=== PATIENT | female | born 1995 | race Caucasian/White ===

== ENCOUNTER 2021-05-13 12:04 | Emergency (ER) | payer OTHER, SELFPAY ==
--- NOTE | 2021-05-13 12:13 | ED.URI ---
HPI - URI/Sore Throat General Chief Complaint: Upper Respiratory Infection Stated Complaint: Sore Throat Time Seen by Provider: 05/13/21 12:34 Source: patient and RN notes reviewed Mode of arrival: ambulatory Limitations: no limitations History of Present Illness HPI Narrative: 25-year-old female presents concern for sore, white spots on her tonsils, chills, fever. Reports she is on day 3 of doxycycline for urinary tract infection. Reports she may have other infections that her traffic court magistrate is treating her for, has sent off cultures. She denies cough, shortness of breath, loss of sense of taste or smell. She has been vaccinated for Covid. She reports history of strep and history of mono. She reports she has been taking Tylenol and ibuprofen. MD elicited complaint: sore throat Related Data Home Medications Medication Instructions Recorded Confirmed dextroamphetamine-amphetamine 30 mg PO DAILY 08/17/19 05/13/21 [Adderall] alprazolam 0.25 mg PO DAILY PRN 05/13/21 05/13/21 desogestrel-ethinyl estradiol 1 tablet PO DAILY 05/13/21 05/13/21 [Enskyce] doxycycline hyclate 100 mg PO BID 05/13/21 05/13/21 Allergies Allergy/AdvReac Type Severity Reaction Status Date / Time amoxicillin Allergy Unknown Urticaria Verified 05/13/21 12:24 azithromycin Allergy Unknown Urticaria Verified 05/13/21 12:24 lisinopril Allergy Unknown Unknown Verified 05/13/21 12:24 Review of Systems Review of Systems: CONSTITUTIONAL: Denies malaise, chills, fever. EYES: Denies visual changes, redness, or discharge. ENT: Reports rhinorrhea, congestion, sinus pain, otalgia. Reports sore throat. CARDIOVASCULAR: Denies chest pain, palpitations, or edema. RESPIRATORY: Denies cough or dyspnea. GASTROINTESTINAL: Denies abdominal pain, nausea, vomiting, diarrhea SKIN: Denies rash or itching. MUSCULOSKELETAL: Reports myalgia. NEUROLOGIC: Reports headache. All systems reviewed & are unremarkable except as noted in HPI and below PMFSH Past Medical History Medical History (Updated 05/13/21 @ 12:41 by Babs Aguiar NP) Chronic joint pain Chronic low back pain Migraine Family History Family History Mother Asthma Sibling Jimena-Danlos disease Other Depression Diabetes mellitus Family history of arthritis Family history of mental disorder Social History Social History Smoking status: Never smoker Alcohol intake: current Gender identity (if verbalized by the patient): Female Comments At time of signature, agree with nursing past medical, surgical, social and family history. There is no relevant family history pertinent to the presenting complaint Exam Narrative: GENERAL: Well-appearing, well-nourished, and in no acute distress. HEAD: Normocephalic EYES: PERRLA, conjunctivae clear ENT: Nares clear. Mucous membranes moist. TM pearly de la cruz with sharp light reflex bilaterally; no tragal tenderness. Oropharynx erythematous without lesions. Tonsils enlarged and without exudate, no drooling, no hoarseness, no trismus, uvula midline. NECK: Supple. No lymphadenopathy CHEST: Clear to auscultation, breath sounds equal. No wheezing, rhonchi, rales, or stridor. No respiratory distress, speaks in full sentences. HEART: Regular rate and rhythm. No murmur heard. SKIN: Warm, dry, no rash. NEURO: Alert and oriented x3. PSYCH: Normal mood and affect Course Course Emergency Course: Patient is aware of diagnosis, understands and agrees to treatment plan. Anticipatory guidance given. Patient agrees to follow-up as directed and is aware of reasons to seek care at the emergency department. Portions of this record may have been created with voice recognition software Vital Signs Vital signs: Reviewed. MDM - URI/Sore Throat MDM Narrative Medical decision making narrative: Differential diagnosis considered: Aponte virus, strep pharyngitis, allergic r
[2021-05-13 12:15] VITALS: BP 145/103; PULSE 86; RESP 16; TEMP 36.9; O2SAT 99
[2021-05-14 19:29] LABS: SARS-CoV-2 RNA PCR Negative
== END 2021-05-13 12:52 | disposition home or self-care (01) ==
PROVIDERS: Emergency Provider Nurse Practitioner; PCP Nurse Practitioner Family
DX: J02.9 Acute pharyngitis, unspecified (principal); Z20.822 Contact with and (suspected) exposure to COVID-19; F41.9 Anxiety disorder, unspecified; F90.9 Attention-deficit hyperactivity disorder, unspecified type; F43.10 Post-traumatic stress disorder, unspecified
CPT/HCPCS: 87081; 87880; 99213; C9803; G0463; U0003; U0005

== ENCOUNTER 2021-06-28 12:35 | Outpatient (CLI) | payer OTHER, SELFPAY ==
--- NOTE | 2021-06-28 12:45 | ECHO_ITS ---
Patient Info Name: Cora Whitney Age: 25 years : 1995 Gender: Female Ht: 65 in Wt: 145 lbs BSA: 1.75 m2 HR: 64 bpm BP: 133 / 88 mmHg Technical Quality: Good Exam Date: 06/28/2021 12:54 PM Exam Location: [facility] Patient Status: Outpatient Admit Date: 06/28/2021 Staff Ordering Physician: Latoya Whitman NP Nutrition Intern: Ese Coburn RDCS Attending Provider: Latoya Whitman NP Referring Physician: J Carlos SUH; Exam Type: CA echo doppler color flow Study Info Indications I10 - Essential (primary) hypertension Complete two-dimensional, color flow and Doppler transthoracic echocardiogram is performed. Summary 1. Complete two-dimensional, color flow and Doppler transthoracic echocardiogram is performed. 2. Left ventricular chamber dimension is normal. 3. Left ventricular systolic function is normal, estimated at 60-65%. 4. The left ventricular diastolic function is normal. 5. E/e' 6 is not elevated. 6. No pulmonary hypertension, estimated pulmonary arterial systolic pressure is 26 mmHg. Left Ventricle E/e' 6 is not elevated. Left ventricular chamber dimension is normal. Left ventricular systolic function is normal, estimated at 60-65%. The left ventricular diastolic function is normal. Right Ventricle Right ventricular systolic function is normal and with normal TAPSE 2.3 cm. Right ventricular chamber dimension is normal. Left Atria Left atrial chamber dimension is normal. Right Atria Right atrial chamber dimension is normal. Aortic Valve The aortic valve is trileaflet. There is no aortic valve stenosis. There is no aortic valve regurgitation. Pulmonic Valve There is no pulmonic regurgitation. Mitral Valve There is no mitral valve stenosis. There is no mitral valve regurgitation. Tricuspid Valve There is no tricuspid valve regurgitation. No pulmonary hypertension, estimated pulmonary arterial systolic pressure is 26 mmHg. Pericardium/Pleural There is no pericardial effusion. Inferior Vena Cava Normal inferior vena cava with >50% collapse upon inspiration consistent with normal right atrial pressure, 5 mmHg. Aorta The aortic root size at the sinus of Valsalva is normal. Left Ventricular Outflow Tract Name Value Normal LVOT 2D LVOT Diameter 2.0 cm LVOT Doppler LVOT Peak Gradient 5 mmHg LVOT Mean Gradient 3 mmHg LVOT VTI 22 cm LVOT VTI/AV VTI Ratio 1.0 LVOT Stroke Volume 69 ml LVOT CO 4.7 l/min LVOT CI 2.7 l/min/m2 Pulmonic Valve Name Value Normal RVOT Doppler RVOT Peak Gradient 3 mmHg PV Doppler
== END 2021-06-28 12:36 | disposition home or self-care (01) ==
PROVIDERS: PCP Nurse Practitioner Family; Visit Provider Nurse Practitioner Family
DX: I10 Essential (primary) hypertension (principal); Z82.79 Family history of other congenital malformations, deformations and chromosomal abnormalities
CPT/HCPCS: 93306

== ENCOUNTER 2021-07-04 12:49 | Outpatient (CLI) | payer OTHER, SELFPAY ==
--- NOTE | 2021-07-04 13:15 | ECG_ITS ---
Measurements Intervals [place] Rate: 71 P: 56 ME: 127 QRS: 53 QRSD: 79 T: 16 QT: 373 QTc: 408 Interpretive Statements SINUS RHYTHM NONSPECIFIC T-WAVE ABNORMALITY- ANTERIOR LEADS BASELINE ARTIFACT- I, II, III, AVR, AVL, AVF, V1-V6 BORDERLINE ECG Electronically Signed On 07-04-2021 13:29:04 CDT by Narinder Joy D.O.
== END 2021-07-04 12:50 | disposition home or self-care (01) ==
LOC: ANHSURGERY 12:54
PROVIDERS: PCP Nurse Practitioner Family; Visit Provider Otolaryngology
DX: Z01.818 Encounter for other preprocedural examination (principal); I10 Essential (primary) hypertension; R94.31 Abnormal electrocardiogram [ECG] [EKG]
CPT/HCPCS: 93005

== ENCOUNTER 2021-07-08 00:31 | Day surgery (SDC) | payer OTHER, SELFPAY ==
[2021-07-01 16:04] VITALS: BMI 24.1
--- NOTE | 2021-07-06 10:35 | PM.IMHP ---
H&P: HPI History of Present Illness Date/Time: 07/06/21 10:35 Chief Complaint: Recurrent tonsillitis/ chronic tonsillitis Narrative: patient presents with a significant history of recurrent tonsillitis. presents for planed surgical procedure. Reports no changes in symptoms no changes in medical history. Review of Systems Constitutional: Constitutional: Denies fatigue, Denies fever(s) and Denies lethargy Eyes: Eyes: Denies blurry vision and Denies change in vision ENT: Reports as per HPI Cardiovascular: Cardiovascular: Denies chest pain Respiratory: Respiratory: Denies cough Endocrine: Endocrine: Denies fatigue Hematologic/Lymphatic: Hematologic/Lymphatic: Denies easy bleeding, Denies easy bruising and Denies lymphadenopathy Allergic/Immunologic: Allergic/Immunologic: Denies seasonal rhinorrhea [facility] Past Medical History Medical History (Updated 06/09/21 @ 08:39 by Latoya Whitman NP) ADHD (attention deficit hyperactivity disorder) Chronic joint pain Chronic low back pain Essential hypertension Migraine Family History Family History Mother Asthma Sibling Jimena-Danlos disease Other Depression Diabetes mellitus Family history of arthritis Family history of mental disorder Social History Social History Smoking status: Never smoker Alcohol intake: current Drinks per week: 3 Substance use: current Substance use type: marijuana Other substance usage details: EDIBLES Last use: 06/30/21 Gender identity (if verbalized by the patient): Female Spiritual care concerns: No Meds Home Medications and Allergies Home Medications Medication Instructions Recorded Confirmed Type dextroamphetamine-amphetamine 30 mg PO DAILY 08/17/19 07/01/21 History [Adderall] alprazolam 0.25 mg PO DAILY PRN 05/13/21 07/01/21 History cetirizine-pseudoephedrine 1 tablet PO Q12H PRN #12 tablet 05/13/21 07/01/21 Rx [Zyrtec-D] desogestrel-ethinyl estradiol 1 tablet PO HS 05/13/21 07/01/21 History [Enskyce] lisinopril 10 mg tablet 10 mg PO DAILY #30 tablet 06/16/21 07/01/21 Rx metoprolol tartrate 25 mg tablet 25 mg PO DAILY #30 tablet 06/16/21 07/01/21 Rx Allergies Allergy/AdvReac Type Severity Reaction Status Date / Time amoxicillin Allergy Unknown Urticaria Verified 07/01/21 16:02 azithromycin Allergy Unknown Urticaria Verified 07/01/21 16:02 Exam Const: General: cooperative, healthy appearing, comfortable, well developed and alert HENMT: Head: normal to inspection, normocephalic and atraumatic Ears: hearing grossly normal bilaterally, external ears normal, TM's normal bilaterally and EAC's normal General nose exam: Normal external nose present, Normal nares present, No nasal polyps present, Normal nasal mucous membranes and turbinates present and Normal septum present Face and sinus: normal facial exam Mouth: Yes Normal oral and palatal mucosa present, Yes lip normal, Yes tongue normal, Yes oropharynx normal and Yes moist mucous membranes Teeth and gingiva: dentition normal and gingiva normal Throat: posterior oropharynx normal, tonisls abnormal ( Two to 3+ cryptic erythematous) and uvula midline Eyes: General: appearance normal, both eyes and all related structures Periorbital: periorbital findings normal Eyelids: eyelids normal Conjunctivae: conjunctivae normal Sclera: sclerae normal Neck: Neck: normal visual inspection, full ROM and no lymphadenopathy Thyroid: thyroid normal Lymphatic: no lymphadenopathy noted Resp: Effort & Inspection: normal respiratory effort and able to speak in complete sentences Cardio: Jugular venous distension: no JVD Neuro: Cranial nerves: Yes CN's II-XII intact bilaterally Assessment and Plan Assessment and plan (1) Enlarged tonsils: Code(s): J35.1 - Hypertrophy of tonsils Status: Acute Assessment and Plan:
[2021-07-08] VITALS (8 sets, daily range): BP systolic 102–121; BP diastolic 63–90; PULSE 71–109; RESP 12–20; TEMP 36.3–37.1; O2SAT 98–100; BMI 24.8
[2021-07-08] MEDS: ACETAMINOPHEN 500 MG TABLET 1000 MG PO (06:48)
--- NOTE | 2021-07-08 07:03 | WPDHPUPDATE1 ---
History and Physical Update Update Date/Time: 07/08/21 07:03 History and Physical has been reviewed, including an updated exam of the patient. There are NO changes in the patient's condition. Risks, benefits, and alternatives have been discussed and questions answered. Patient agrees to proceed with procedure.
[2021-07-08] MEDS: LACTATED RINGERS 1,000 ML 30 ML IV CONT (07:04)
--- NOTE | 2021-07-08 07:42 | P.PNAN_ITS ---
Anes - Initial Pre Proc Eval Procedure: Operation Date: 07/08/21 07:45 Proposed Procedures p Tonsillectomy - Artur Toth MD Date/Time: 07/08/21 07:42 Surgeon: Artur Toth MD Pre Op Diagnosis: chronic tonsilitis Patient Data Age: 25 Gender: F Height: 1.65 m Weight: 67.7 kg Last Vital Signs Temp 37.1 C 07/08/21 07:06 Pulse 109 H 07/08/21 07:06 Resp 18 07/08/21 07:06 BP 121/72 07/08/21 07:06 Pulse Ox 100 07/08/21 07:06 Allergies Allergy/AdvReac Type Severity Reaction Status Date / Time amoxicillin Allergy Unknown Hives Verified 07/08/21 06:43 azithromycin Allergy Unknown Hives Verified 07/08/21 06:43 Home Medications Medication Instructions Recorded Confirmed Type dextroamphetamine-amphetamine 30 mg PO DAILY 08/17/19 07/08/21 History [Adderall] alprazolam 0.25 mg PO DAILY PRN 05/13/21 07/08/21 History cetirizine-pseudoephedrine 1 tablet PO Q12H PRN #12 tablet 05/13/21 07/08/21 Rx [Zyrtec-D] desogestrel-ethinyl estradiol 1 tablet PO HS 05/13/21 07/08/21 History [Enskyce] lisinopril 10 mg tablet 10 mg PO DAILY #30 tablet 06/16/21 07/08/21 Rx metoprolol tartrate 25 mg tablet 25 mg PO DAILY #30 tablet 06/16/21 07/08/21 Rx Patient hx anesthesia problems: none Family hx anesthesia problems: none Results Review: All pre-operative results and documents have been reviewed as pa rt of the pre-operative evaluation. [facility] Past Medical History Medical History ADHD (attention deficit hyperactivity disorder) Chronic joint pain Chronic low back pain Essential hypertension Migraine Family History Family History Mother Asthma Sibling Jimena-Danlos disease Other Depression Diabetes mellitus Family history of arthritis Family history of mental disorder Social History Social History Smoking status: Never smoker Alcohol intake: current Drinks per week: 3 Substance use: current Substance use type: marijuana Other substance usage details: EDIBLES Last use: 06/30/21 Living arrangements: with family Gender identity (if verbalized by the patient): Female Spiritual care concerns: No Anes - Eval Final PreProcedure Day of Procedure 07/08/21 07:42 Heart: regular rate and rhythm Lungs: clear to auscultation Airway: Mallampati scale class II Neurological: alert and oriented Last oral intake: >/= 8 hours ASA classification: II Emergent: no Anesthetic plan: proceed Anesthesia type and monitoring: general ETT and standard monitoring Results Review: All pre-operative results and documents have been reviewed as part of the pre-operative evaluation. Informed Consent: The patient's anesthetic plan and its attendant risks and benefits were discussed with the patient/family/POA. Questions were solicited and answers provided to the satisfaction of the patient/family/POA.
--- NOTE | 2021-07-08 08:44 | W.PM.PROC2 ---
Procedure Note - Detailed Date of Procedure 07/08/21 Pre-op Diagnosis chronic tonsilitis, recurrent tonsillitis Post-op Diagnosis same Procedure Performed tonsillectomy Surgeon Artur Toth MD Data Modeling Architect none Anesthesia general Indications see above Findings 2+ cryptic tonsils purulence when grabbed erythematous edematous Description of Procedure the patient was correctly identified consent verified in the preoperative holding area. The patient was then brought to the operating room and a time-out performed. Anesthesia was induced and endotracheal tube was secured the patient's airway. The patient was then prepped and draped for the aforementioned procedures in bed turned. Second time-out performed. McIvor mouth gag placed in the patient's airway to reveal tonsils with the aforementioned findings. This procedure was performed bilaterally. The right tonsil was grasped with a curved Allis forceps and dissected in extracapsular plane using Bovie electrocautery at a setting of 8. Hemostasis was achieved using the intermittent application of suction Bovie electrocautery. The exact same procedure was performed on the left side with the exact same findings. In between the McIvor mouth gag was lowered to allow blood flow to return to the tongue for 1 minutes. After the left tonsil was out which was the last tonsil, the McIvor mouth gag was lowered for 30 seconds and reopened to reveal tonsillar postoperative fossa with no bleeding. The McIvor mouth gag was again lowered and removed. Care of the patient was turned over to Anesthesiology. I performed all dictated portions of the procedure. There were no complications. Blood loss approximately 5 cc. Estimated Blood Loss -5.0 Drains No Packing No Pathology yes Complications No immediate complications Condition stable Disposition PACU
[2021-07-08] MEDS: fentaNYL CITRATE INJ (*CRX) 100 MCG/2 ML VIAL 25 MCG IV PUSH (09:25)
[2021-07-08] MEDS: oxyCODONE HCL (*CRX) 5 MG TAB IR PO (09:58)
== END 2021-07-08 10:23 | disposition home or self-care (01) ==
PROVIDERS: PCP Nurse Practitioner Family; Visit Provider Otolaryngology
PROC: (CPT 42826; principal; 2021-07-08 07:45)
DX: J35.01 Chronic tonsillitis (principal)
CPT/HCPCS: 42826; 88302; 88304; 93005; A9270; J1100; J2250; J2405; J2704; J3010; J7120

== ENCOUNTER 2021-07-11 15:39 | Emergency (ER) | payer OTHER, SELFPAY ==
[2021-07-11 15:48] VITALS: BP 137/95; PULSE 94; RESP 16; TEMP 37.1; O2SAT 97
--- NOTE | 2021-07-11 16:00 | ED.GENADULT ---
HPI - General Adult General Chief complaint: Unspecified Stated complaint: Post op complications Time Seen by Provider: 07/11/21 16:00 Source: patient Mode of arrival: ambulatory Limitations: no limitations History of Present Illness HPI narrative: Patient is a 25-year-old female with a history of recurrent tonsillitis with tonsillectomy on July [address] Artur Persaud, presenting for evaluation of bleeding from the right tonsillar area. Patient states that she experienced some blood present in her sputum today, states that she has been able to tolerate popsicles, Ramen, otherwise continues to endorse severe sore throat. Patient denies any current shortness of breath, lightheadedness or dizziness. Patient does state that she feels quite stressed, anxious. Patient is tearful in the room. Father is at bedside. She denies any current bleeding. Last oral intake 3 hours ago. Patient has only had clear liquids today. Related Data Home Medications Medication Instructions Recorded Confirmed dextroamphetamine-amphetamine 30 mg PO DAILY 08/17/19 07/08/21 [Adderall] alprazolam 0.25 mg PO DAILY PRN 05/13/21 07/08/21 desogestrel-ethinyl estradiol 1 tablet PO HS 05/13/21 07/08/21 [Enskyce] Allergies Allergy/AdvReac Type Severity Reaction Status Date / Time amoxicillin Allergy Unknown Hives Verified 07/08/21 06:43 azithromycin Allergy Unknown Hives Verified 07/08/21 06:43 Review of Systems Review of Systems: CONSTITUTIONAL: Denies fever CARDIOVASCULAR: Denies chest pain RESPIRATORY: Denies cough or dyspnea. GASTROINTESTINAL: Denies abdominal pain SKIN: Denies rash MUSCULOSKELETAL: Denies back pain NEUROLOGIC: Denies headache PMFSH Past Medical History Medical History ADHD (attention deficit hyperactivity disorder) Chronic joint pain Chronic low back pain Essential hypertension Migraine Surgical History Surgical History Hx of tonsillectomy (~07/2021) Family History Family History Mother Asthma Sibling Jimena-Danlos disease Other Depression Diabetes mellitus Family history of arthritis Family history of mental disorder Social History Social History Smoking status: Never smoker Alcohol intake: current Drinks per week: 3 Substance use: current Substance use type: marijuana Other substance usage details: EDIBLES Last use: 06/30/21 Gender identity (if verbalized by the patient): Female Spiritual care concerns: No Exam Narrative: GENERAL: Awake, alert, conversant, tearful HEAD: Normocephalic, atraumatic. EYES: PERRLA and EOMI. ENT: Nares clear, no rhinorrhea or epistaxis. Mucous membranes moist. Uvula is midline. The bilateral tonsillar fossa are clear without active bleeding. No large clots. There is white eschar covering the area which appears to be well-healing. No trismus. NECK: Supple. CHEST: No respiratory distress, breathing even and non labored HEART: Regular rate, sinus rhythm ABDOMEN:Non distended, non tender EXTREMITIES: Normal range of motion. No edema. SKIN: Warm, dry, no rash. NEURO:No focal deficits. Alert and oriented x3 Course Vital Signs Vital signs: Vital Signs Temperature 37.1 C 07/11/21 15:48 Pulse Rate 94 07/11/21 15:48 Respiratory Rate 16 07/11/21 15:48 Blood Pressure 137/95 H 07/11/21 15:48 Pulse Oximetry 97 07/11/21 15:48 Temperature 37.1 C 07/11/21 15:48 Pulse Rate 94 07/11/21 15:48 Respiratory Rate 16 07/11/21 15:48 Blood Pressure 137/95 H 07/11/21 15:48 Pulse Oximetry 97 07/11/21 15:48 Medical Decision Making MDM Narrative Medical decision making narrative: Patient presenting for evaluation of post tonsillectomy bleeding. At the time of assessment, there is no active bleeding. T
[2021-07-11 16:22] LABS: Basophils Percent Auto 0.3 % (0.2-1.2); Eosinophils Absolute Auto 0.2 K/mm3 (0-0.3); Eosinophils Percent Auto 2.8 % (0-4.4); Hematocrit 39.1 % (37.0-47.0); Hemoglobin 13.5 g/dL (12.0-15.0); Immature Granulocyte Absolute 0.02 K/mm3 (0.00-0.031); Immature Granulocyte Percent A 0.3 % (0-0.5); Lymphocytes Percent Auto 26.5 % (18.3-44.2); Mean Corpuscular HGB Conc 34.5 g/dl (32-36); Mean Corpuscular Hemoglobin 30.5 pg (26-34); Mean Corpuscular Volume 88.5 fl (80-100); Mean Platelet Volume 9.7 fl (7.4-10.4); Monocytes Absolute Auto 0.4 K/mm3 (0.1-0.6); Monocytes Percent Auto 6.5 % (2.6-8.5); Neutrophils Absolute Auto 4.3 K/mm3 (1.3-6.7); Neutrophils Percent Auto 63.6 % (45.5-73.1); Platelet Count Result 260 k/mm3 (150-375); Red Blood Count 4.42 M/mm3 (4.2-5.4); Red Cell Distribution Width 11.7 % (11.5-14.5); White Blood Count 6.8 K/mm3 (4.5-10.0)
[2021-07-11 16:33] LABS: Anion Gap 6 mmol/L (8-16); Blood Urea Nitrogen 8 mg/dL (7-17); Calcium 9.4 mg/dL (8.4-10.2); Carbon Dioxide 27 mmol/L (22-30); Chloride 106 mmol/L (98-107); Estimated CRCL calculation 128 ml/min; Estimated Glomerular Filt Rate > 60; Glucose 96 mg/dL (65-110); Potassium 4.3 mmol/L (3.4-5.0); Sodium 139 mmol/L (137-145)
[2021-07-11] MEDS: oxyCODONE HCL (*CRX) 5 MG TAB IR PO (17:00)
[2021-07-11 17:04] VITALS: BP 137/98; PULSE 105; RESP 14; O2SAT 99
--- NOTE | 2021-07-12 12:59 | WPDCN ---
Assessment and Plan Assessment and plan (1) Post-tonsillectomy hemorrhage: Code(s): J95.830 - Postprocedural hemorrhage of a respiratory system organ or structure following a respiratory system procedure Status: Acute Assessment and Plan: no clot to suctions small areas of mucosal oozing cauterized with silver nitrate after anesthetizing with topical Cetacaine banana flavored. Patient tolerated the procedure well. I prescribed more oxycodone earlier today which she should be able to fill on Sunday. The ER will give her 1 5 mg dose. She should call me with any and all issues. The natural history for postoperative tonsillectomy course was discussed in great detail. Patient needs to drink plenty of fluids take it easy for a couple weeks postop. HPI Data of Consult Date/Time: 07/12/21 12:59 Primary Care Provider: Latoya Whitman NP Consult Narrative Narrative: Cora Whitney is a 25 year old female with recurrent tonsillitis status post tonsillectomy 3 days ago. She reports brisk bleeding from the right side small volume. When she looked there was a clot. Presents to the ER ear reports that there was no clot or bleeding noted. ENT consult for further evaluation and treatment. Review of Systems Constitutional: Constitutional: Denies fatigue, Denies fever(s) and Denies lethargy Eyes: Eyes: Denies blurry vision and Denies change in vision ENT: Reports as per HPI Cardiovascular: Cardiovascular: Denies chest pain Respiratory: Respiratory: Denies cough Endocrine: Endocrine: Denies fatigue Hematologic/Lymphatic: Hematologic/Lymphatic: Denies easy bleeding, Denies easy bruising and Denies lymphadenopathy Allergic/Immunologic: Allergic/Immunologic: Denies seasonal rhinorrhea [facility] Past Medical History Medical History ADHD (attention deficit hyperactivity disorder) Chronic joint pain Chronic low back pain Essential hypertension Migraine Surgical History Surgical History Hx of tonsillectomy (~07/2021) Family History Family History Mother Asthma Sibling Jimena-Danlos disease Other Depression Diabetes mellitus Family history of arthritis Family history of mental disorder Social History Social History Smoking status: Never smoker Alcohol intake: current Drinks per week: 3 Substance use: current Substance use type: marijuana Other substance usage details: EDIBLES Last use: 06/30/21 Gender identity (if verbalized by the patient): Female Spiritual care concerns: No Meds Home Medications and Allergies Home Medications Medication Instructions Recorded Confirmed Type dextroamphetamine-amphetamine 30 mg PO DAILY 08/17/19 07/08/21 History [Adderall] alprazolam 0.25 mg PO DAILY PRN 05/13/21 07/08/21 History cetirizine-pseudoephedrine 1 tablet PO Q12H PRN #12 tablet 05/13/21 07/08/21 Rx [Zyrtec-D] desogestrel-ethinyl estradiol 1 tablet PO HS 05/13/21 07/08/21 History [Enskyce] lisinopril 10 mg tablet 10 mg PO DAILY #30 tablet 06/16/21 07/08/21 Rx metoprolol tartrate 25 mg tablet 25 mg PO DAILY #30 tablet 06/16/21 07/08/21 Rx oxycodone 5 mg PO Q12H PRN #10 tablet 07/08/21 Rx oxycodone 5 mg tablet 5 mg PO Q12H PRN #10 tablet 07/11/21 Rx Allergies Allergy/AdvReac Type Severity Reaction Status Date / Time amoxicillin Allergy Unknown Hives Verified 07/08/21 06:43 azithromycin Allergy Unknown Hives Verified 07/08/21 06:43 Vital Signs Vital Signs - 24 hr 07/11/21 15:48 07/11/21 17:04 Temperature 37.1 C Pulse Rate 94 105 H Respiratory Rate 16 14 Blood Pressure 137/95 H 137/98 H Pulse Oximetry 97 99 Exam Const: General: cooperative, healthy appearing, comfortable, well developed and alert HENMT: Head: normal to in
== END 2021-07-11 17:07 | disposition home or self-care (01) ==
PROVIDERS: Emergency Provider Emergency Medicine; PCP Nurse Practitioner Family
DX: G89.18 Other acute postprocedural pain (principal); I10 Essential (primary) hypertension
CPT/HCPCS: 36415; 80048; 85025; 99283; A9270

== ENCOUNTER 2021-07-14 15:56 | Outpatient (CLI) | payer OTHER, SELFPAY ==
--- NOTE | ~2021-07-14 | US_ITS ---
US renal BI 07/14/2021 16:27 Procedure: Realtime transabdominal ultrasound of the kidneys and bladder. Indication: Essential hypertension Comparison: No prior studies for comparison. Findings: Renal echotexture is normal bilaterally without hydronephrosis, contour deforming mass or r enal calculus. The right kidney measures 9.3 cm and left kidney measures 10 cm cm. Bladder within no rmal limits. Impression: 1: Unremarkable renal ultrasound. No stones, masses or hydronephrosis. Reviewed, dictated and finalized at location A. [employer] WORKER Impression: 1: Unremarkable renal ultrasound. No stones, masses or hydronephrosis.
== END 2021-07-14 15:57 | disposition home or self-care (01) ==
PROVIDERS: PCP Nurse Practitioner Family; Visit Provider Nurse Practitioner Family
DX: I10 Essential (primary) hypertension (principal)
CPT/HCPCS: 76775

== ENCOUNTER 2021-12-13 22:22 | Emergency (ER) | payer OTHER, SELFPAY ==
[2021-12-13 22:27] VITALS: BP 112/55; PULSE 94; RESP 14; TEMP 36.2; O2SAT 100
--- NOTE | 2021-12-13 22:44 | ECG_ITS ---
Measurements Intervals [place] Rate: 95 P: 59 VA: 131 QRS: 62 QRSD: 87 T: 36 QT: 365 QTc: 459 Interpretive Statements SINUS RHYTHM NONSPECIFIC T-WAVE ABNORMALITY ABNORMAL ECG COMPARED TO ECG 07/04/2021 13:05:53 T-WAVE ABNORMALITY NOW PRESENT Electronically Signed On 12-14-2021 15:46:15 CDT by Waldemar Kenyon M.D.
--- NOTE | 2021-12-13 22:50 | PC.NURSE ---
Seizure precautions initiated
--- NOTE | 2021-12-13 22:51 | ED.NAVMDI ---
HPI - Nausea/Vomiting/Diarrhea General Chief complaint: Nausea/Vomiting/Diarrhea Stated complaint: vomiting, diarrhea Time Seen by Provider: 12/13/21 22:44 Source: patient and family Mode of arrival: ambulatory Limitations: no limitations History of Present Illness HPI Narrative: 26-year-old female brought to the emergency room by her father secondary to vomiting diarrhea. Started when she was at work this afternoon and just progressed to continue to have episodes of both vomiting and the diarrhea. Patient also has underlying history of a seizure disorder. She is being referred out to see a neurologist. Apparently according to her father she has had seizures for many years and has them occasionally. She denies any medications for seizures at this point however. Right after the patient arrived to the emergency room she was noted to have a very brief seizure and collapse. Staff was present called her and she did not hit the floor and injure herself. After which she had a typical post state and then she was able to answer my questions appropriately after that. No one else at home has been sick with the GI symptoms. No but it works been sick as well. Related Data Home Medications Medication Instructions Recorded Confirmed alprazolam 0.25 mg PO DAILY PRN 05/13/21 11/29/21 desogestrel-ethinyl estradiol 1 tablet PO HS 05/13/21 11/29/21 [Enskyce] dextroamphetamine-amphetamine 15 15 mg PO BID tablet 11/29/21 11/29/21 mg tablet Allergies Allergy/AdvReac Type Severity Reaction Status Date / Time amoxicillin Allergy Unknown Hives Verified 12/13/21 23:25 azithromycin Allergy Unknown Hives Verified 12/13/21 23:25 Review of Systems Review of Systems: CONSTITUTIONAL: Denies fever, chills, or sweats. EYES: Denies visual changes, redness, or discharge. ENT: Denies rhinorrhea, congestion, sore throat, or otalgia. CARDIOVASCULAR: Denies chest pain, palpitations, or edema. RESPIRATORY: Denies cough or dyspnea. GASTROINTESTINAL: Patient is having nausea, vomiting, and diarrhea. No blood in her vomitus or stool. GENITOURINARY: Denies dysuria or hematuria. SKIN: Denies rash or itching. MUSCULOSKELETAL: Denies back pain, joint pain, or myalgia. NEUROLOGIC: Denies headache, numbness, or weakness. History of seizures PSYCHIATRIC: Denies anxiety or depression. [facility] Past Medical History Medical History ADHD (attention deficit hyperactivity disorder) Chronic joint pain Chronic low back pain Essential hypertension Migraine Recurrent streptococcal tonsillitis Surgical History Surgical History Hx of tonsillectomy (~07/2021) Family History Family History Mother Asthma Sibling Jimena-Danlos disease Other Depression Diabetes mellitus Family history of arthritis Family history of mental disorder Social History Social History Smoking status: Never smoker Alcohol intake: current Drinks per week: 3 Substance use: current Substance use type: marijuana Other substance usage details: EDIBLES Last use: 06/30/21 Gender identity (if verbalized by the patient): Female Spiritual care concerns: No Exam Narrative: APPEARANCE: When I initially saw the patient she was noted to be post ictal. Head normocephalic and atraumatic. EYES: PERRLA/EOMI, conjunctivae very clear. NOSE: Normal with no drainage EARS:TMS clear Teresita Ramsay, with good light reflex. THROAT: Pharynx clear, no exudate. NECK: Supple. No adenopathy, no masses. RESPIRATORY: Airway patent, respirations nonlabored. Clear to auscultation bilaterally, no rales, rhonchi, wheezing. CARDIOVASCULAR: Regular rate and rhythm without murmurs, rubs, or gallops. ABDOMINAL: Soft, nontender, nondistended, no hepatosplenomegaly Musculoskeletal: Moves al
[2021-12-13 22:57] LABS: Basophils Percent Auto 0.3 % (0.2-1.2); Eosinophils Absolute Auto 0.2 K/mm3 (0-0.3); Eosinophils Percent Auto 1.2 % (0-4.4); Hematocrit 41.5 % (37.0-47.0); Hemoglobin 13.7 g/dL (12.0-15.0); Immature Granulocyte Absolute 0.04 K/mm3 (0.00-0.031); Immature Granulocyte Percent A 0.3 % (0-0.5); Lymphocytes Absolute Auto 1.92 K/mm3 (0.9-3.2); Lymphocytes Percent Auto 13.5 % (18.3-44.2); Mean Corpuscular Hemoglobin 30.6 pg (26-34); Mean Corpuscular Volume 92.8 fl (80-100); Mean Platelet Volume 9.9 fl (7.4-10.4); Monocytes Absolute Auto 0.5 K/mm3 (0.1-0.6); Monocytes Percent Auto 3.2 % (2.6-8.5); Neutrophils Absolute Auto 11.6 K/mm3 (1.3-6.7); Neutrophils Percent Auto 81.5 % (45.5-73.1); Platelet Count Result 323 k/mm3 (150-375); Red Blood Count 4.47 M/mm3 (4.2-5.4); Red Cell Distribution Width 12.5 % (11.5-14.5); White Blood Count 14.3 K/mm3 (4.5-10.0)
--- NOTE | 2021-12-13 23:00 | PC.NURSE ---
Around 2244, patient was brought to ED room 10 by Viki RN and Mary RN. While transferring from wheelchair to stretcher, patient appears to have had a seizure lasting about 30-45 seconds. Slouched over onto the bed and was assisted to floor by nurses. Assistance was called overhead. BRIANNE Fontenot and myself arrived to the room. Patient was on L lateral position and woke up confused with stool incontinence. No injury occurred. Patient carried onto the bed, Vitals assessed, evaluated by EDP, IV initiated, EKG completed. Patient postictal, pale, clammy. Patient was cleaned, clothing removed, and placed into a gown.
[2021-12-13 23:10] VITALS: BP 83/55; PULSE 88; RESP 16; O2SAT 100
[2021-12-13 23:13] LABS: Alanine Aminotransferase 18 U/L (4-35); Albumin Level 3.9 g/dL (3.5-5.1); Alkaline Phosphatase 48 U/L (38-126); Anion Gap 8 mmol/L (8-16); Aspartate Amino Transferase 36 U/L (14-36); Bilirubin,Total 0.7 mg/dL (0.2-1.3); Blood Urea Nitrogen 17 mg/dL (7-17); Calcium 8.1 mg/dL (8.4-10.2); Carbon Dioxide 21 mmol/L (22-30); Chloride 108 mmol/L (98-107); Estimated CRCL calculation 112 ml/min; Estimated Glomerular Filt Rate > 60; Glucose 147 mg/dL (65-110); Potassium 3.5 mmol/L (3.4-5.0); Sodium 137 mmol/L (137-145)
[2021-12-13] MEDS: SODIUM CHLORIDE 0.9% IV 1,000 ML 999 ML IV CONT (23:22)
[2021-12-13] MEDS: ONDANSETRON INJ 4 MG/2 ML VIAL IV PUSH (23:23)
[2021-12-13 23:38] VITALS: BP 99/72; PULSE 92; RESP 15; O2SAT 98
[2021-12-14 00:22] VITALS: BP 122/62; PULSE 94; RESP 14; O2SAT 99
== END 2021-12-14 00:25 | disposition home or self-care (01) ==
PROVIDERS: Emergency Provider Emergency Medicine; PCP Nurse Practitioner Family
DX: K52.9 Noninfective gastroenteritis and colitis, unspecified (principal); G40.909 Epilepsy, unspecified, not intractable, without status epilepticus; I10 Essential (primary) hypertension; F90.9 Attention-deficit hyperactivity disorder, unspecified type; R94.31 Abnormal electrocardiogram [ECG] [EKG]
CPT/HCPCS: 36415; 80053; 85025; 93005; 96361; 96374; 99284; J2405; J7030

== ENCOUNTER 2022-01-26 06:54 | Outpatient (CLI) | payer OTHER, SELFPAY ==
--- NOTE | 2022-01-26 09:33 | WPDNEUROLOGY ---
Neurology EEG Report General Information Date of Study: 01/26/22 TEST EEG DIAGNOSIS seizures CONDITION OF RECORDING awake drowsy and sleep EEG NUMBER [id number] CLINICAL HISTORY patient reports for about the last 3 years she has episodes of visual changes, dizziness, eye starting, and sometimes loses consciousness. He is very tired for day or 2 following the episodes EEG DESCRIPTION basic resting occipital frequency consists of low to medium voltage 9 to 11 hertz per 2nd alpha admixed with low-voltage 15 to 18 hertz per 2nd beta. During drowsiness low-voltage beta activity seen diffusely admixed waxing and waning posterior alpha rhythm. Bilateral symmetrical sleep activity seen during sleep. Photic stimulation produced normal drive. Hyperventilation not done. Non paroxysmal. Nonfocal. Nonlateralizing. IMPRESSION Normal record
== END 2022-01-26 06:55 | disposition home or self-care (01) ==
PROVIDERS: PCP Family Medicine; Visit Provider Psychiatry & Neurology Neurology
DX: G40.209 Localization-related (focal) (partial) symptomatic epilepsy and epileptic syndromes with complex partial seizures, not intractable, without status epilepticus (principal)
CPT/HCPCS: 95816

== ENCOUNTER → 2022-02-01 12:10 | Outpatient (CLI) | payer OTHER, SELFPAY ==
--- NOTE | ~2022-02-01 | MR_ITS ---
EXAMINATION: MR brain/brain stem wo/w con DATE: 02/01/2022 13:11 INDICATION: Complex partial seizures. TECHNIQUE: Magnetic resonance imaging (MRI) of the brain and brainstem was performed without and with 13 mL MultiHance intravenous contrast. COMPARISON: None. FINDINGS: The hippocampi are normal and symmetric. There is no intracranial hemorrhage, acute infarct ion, or abnormal intracranial mass lesion. The ventricles are normal in size. The ventricles are norm al in size. The paranasal sinuses are clear. The orbits are normal. The mastoid air cells are normal. IMPRESSION: 1. Normal brain. Reviewed, dictated and finalized at location A. IMPRESSION: 1. Normal brain.
[2022-02-01 12:47] LABS: Estimated Glomerular Filt Rate > 60
== END ==
PROVIDERS: PCP Nurse Practitioner Family; Visit Provider Psychiatry & Neurology Neurology
DX: G40.209 Localization-related (focal) (partial) symptomatic epilepsy and epileptic syndromes with complex partial seizures, not intractable, without status epilepticus (principal)
CPT/HCPCS: 70553; A9577

== ENCOUNTER 2022-03-30 17:25 | Emergency (ER) | payer OTHER, SELFPAY ==
[2022-03-30] VITALS (11 sets, daily range): BP systolic 128–131; BP diastolic 81–97; PULSE 81–118; RESP 10–22; TEMP 36.4; O2SAT 98–100
--- NOTE | ~2022-03-30 | XR_ITS ---
EXAMINATION: XR chest 2V 03/30/2022 18:18 INDICATION: Chest palpitations PROCEDURE: 2 view chest COMPARISON: No prior studies for comparison. FINDINGS: The lungs are clear. The cardiomediastinal silhouette is within normal limits. There are no pleural effusions. There is no pneumothorax suspected. IMPRESSION: 1: NO ACUTE CARDIOPULMONARY DISEASE. Reviewed, dictated and finalized at location A.
--- NOTE | ~2022-03-30 | CT_ITS ---
EXAMINATION: CTA chest PE protocol DATE: 03/30/2022 19:52 CDT INDICATION: Shortness of breath TECHNIQUE: Computed tomographic angiography (CTA) of the chest was performed with 100 mL Omnipaque-35 0 intravenous contrast. The dose-length product was 157.82 mGy-cm. Maximum intensity projection 3D-re constructions of the aorta and other arteries were constructed by the technologist on a separate work station. COMPARISON: Chest x-ray dated 03/30/2022 FINDINGS: Study is technically adequate without evidence for pulmonary embolism. Aorta is within norm al limits without aneurysm or dissection. Heart size normal. No significant pleural or pericardial ef fusion. No thoracic lymphadenopathy. Mild thoracic spondylosis. No pneumothorax. No endobronchial les ions.. IMPRESSION: 1. No acute cardiopulmonary disease. No evidence for pulmonary embolism. Reviewed, dictated and finalized at location A.
--- NOTE | 2022-03-30 17:27 | ECG_ITS ---
Measurements Intervals Goodman Rate: 100 P: 56 LA: 121 QRS: 58 QRSD: 69 T: 39 QT: 336 QTc: 433 Interpretive Statements SINUS TACHYCARDIA RSR' IN V1 OR V2, PROBABLY NORMAL VARIANT MINIMAL Q WAVES- ANTEROLAT/INF LEADS BORDERLINE ECG Electronically Signed On 03-30-2022 20:59:08 CDT by Narinder Joy D.O.
[2022-03-30 17:54] LABS: Basophils Percent Auto 0.4 % (0.2-1.2); Eosinophils Absolute Auto 0.2 K/mm3 (0-0.3); Eosinophils Percent Auto 2.7 % (0-4.4); Hematocrit 38.4 % (37.0-47.0); Immature Granulocyte Absolute 0.01 K/mm3 (0.00-0.031); Immature Granulocyte Percent A 0.1 % (0-0.5); Lymphocytes Absolute Auto 3.78 K/mm3 (0.9-3.2); Lymphocytes Percent Auto 46.2 % (18.3-44.2); Mean Corpuscular HGB Conc 33.9 g/dl (32-36); Mean Corpuscular Hemoglobin 30.8 pg (26-34); Mean Platelet Volume 10.4 fl (7.4-10.4); Monocytes Absolute Auto 0.6 K/mm3 (0.1-0.6); Monocytes Percent Auto 7.1 % (2.6-8.5); Neutrophils Absolute Auto 3.6 K/mm3 (1.3-6.7); Neutrophils Percent Auto 43.5 % (45.5-73.1); Platelet Count Result 311 k/mm3 (150-375); Red Blood Count 4.22 M/mm3 (4.2-5.4); Red Cell Distribution Width 11.9 % (11.5-14.5); White Blood Count 8.2 K/mm3 (4.5-10.0)
[2022-03-30 18:19] LABS: Alanine Aminotransferase 24 U/L (6-35); Albumin Level 3.9 g/dL (3.5-5.1); Alkaline Phosphatase 54 U/L (38-126); Anion Gap 9 mmol/L (8-16); Aspartate Amino Transferase 29 U/L (14-36); Bilirubin,Total 0.3 mg/dL (0.2-1.3); Blood Urea Nitrogen 12 mg/dL (7-17); Calcium 9.1 mg/dL (8.4-10.2); Carbon Dioxide 24 mmol/L (22-30); Chloride 105 mmol/L (98-107); Estimated CRCL calculation 112 ml/min; Estimated Glomerular Filt Rate > 60; Glucose 113 mg/dL (65-110); Lipase 108 U/L (23-300); Sodium 138 mmol/L (137-145)
[2022-03-30 18:30] LABS: Troponin I < 0.012 ng/mL (0.000-0.034)
[2022-03-30 18:33] LABS: Partial Thromboplastin Time 26.3 SECONDS (22.3-36.8)
[2022-03-30] MEDS: SODIUM CHLORIDE 0.9% IV 1,000 ML 999 ML IV CONT (18:33)
[2022-03-30 18:40] LABS: D Dimer 2.22 ug/mL (<0.48)
[2022-03-30 19:06] LABS: SARS-CoV-2 RNA PCR Negative
--- NOTE | 2022-03-30 20:13 | ED.GENADULT ---
HPI - General Adult General Chief complaint: Arrhythmia/Palpitations Stated complaint: heart racing and left arm tingling Time Seen by Provider: 03/30/22 17:35 History of Present Illness HPI narrative: Patient is a 26-year-old female who presents ER with heart palpitations. Feels like her hearts been racing since 10:15 AM. Approximately 120 bpm. No associated chest pain or lightheadedness. Feels mildly short of breath. No pain with deep breath. No hemoptysis. No lower extremity swelling or calf pain. No history of PE. Denies trauma. Has tingling in left arm without aggravating or alleviating factors. No swelling in arm. Patient does take dextroamphetamine?amphetamine but has had no increase in her dosage. No fevers or chills or sweats. No productive cough. Related Data Home Medications Medication Instructions Recorded Confirmed alprazolam 0.25 mg tablet 0.25 mg PO DAILY PRN Anxiety 05/13/21 01/20/22 desogestrel 0.15 mg-ethinyl 1 tablet PO HS 05/13/21 01/20/22 estradiol 0.03 mg tablet (Enskyce) dextroamphetamine-amphetamine 15 15 mg PO BID 11/29/21 01/20/22 mg tablet methylprednisolone 4 mg tablet 4 mg PO DAILY 12/27/21 01/20/22 (Medrol) Allergies Allergy/AdvReac Type Severity Reaction Status Date / Time amoxicillin Allergy Unknown Hives Verified 03/30/22 17:26 azithromycin Allergy Unknown Hives Verified 03/30/22 17:26 Review of Systems Review of Systems: All systems reviewed & are unremarkable except as noted in HPI and below Constitutional: Constitutional: Denies chills, Denies fatigue and Denies fever(s) Cardiovascular: Cardiovascular: Denies chest pain, Reports rapid heart rate and Denies radiating jaw, neck or arm pain Respiratory: Respiratory: Denies chest congestion, Denies cough, Reports dyspnea and Denies wheezing Gastrointestinal: Gastrointestinal: Denies abdominal pain, Denies nausea and Denies vomiting Musculoskeletal: Musculoskeletal: Denies arthralgias, Denies joint swelling and Denies muscle cramps Neurologic: Denies dizziness and Denies focal weakness Comments: Tingling left arm PMFSH Past Medical History Medical History ADHD (attention deficit hyperactivity disorder) Chronic joint pain Chronic low back pain Epilepsia Essential hypertension Migraine Recurrent streptococcal tonsillitis Surgical History Surgical History Hx of tonsillectomy (~07/2021) Family History Family History Mother Asthma Sibling Jimena-Danlos disease Other Depression Diabetes mellitus Family history of arthritis Family history of mental disorder Social History Social History Smoking status: Never smoker Alcohol intake: current Drinks per week: 3 Substance use: current Substance use type: marijuana Other substance usage details: EDIBLES Last use: 06/30/21 Gender identity (if verbalized by the patient): Female Spiritual care concerns: No Exam Narrative: GENERAL: Well-appearing, well-nourished, and in no acute distress. HEAD: Normocephalic, atraumatic. EYES: PERRL and EOMI. NECK: Supple. CHEST: Clear to auscultation. No respiratory distress. HEART: Regular rate and rhythm. Normal peripheral pulses. ABDOMEN: Soft, nontender, nondistended. EXTREMITIES: Normal range of motion. No edema. SKIN: Warm, dry, no rash. NEURO: Alert and oriented x3. PSYCH: Normal mood and affect. Course Course Emergency Course: Patient without tachycardia on my initial exam but then increased as we talked about her symptoms into the low 100s. Patient hydrated. Labs were unremarkable with exception of D-dimer which was elevated so CTA performed. This was negative for pulmonary embolism. Patient has negative Homans' sign in the lower extremities without lower extremity edema. No u
== END 2022-03-30 21:33 | disposition home or self-care (01) ==
PROVIDERS: Emergency Provider Emergency Medicine; PCP Nurse Practitioner Family
DX: R00.2 Palpitations (principal); M54.10 Radiculopathy, site unspecified; Z20.822 Contact with and (suspected) exposure to COVID-19; F90.9 Attention-deficit hyperactivity disorder, unspecified type; I10 Essential (primary) hypertension; G40.909 Epilepsy, unspecified, not intractable, without status epilepticus; R00.0 Tachycardia, unspecified; R94.31 Abnormal electrocardiogram [ECG] [EKG]
CPT/HCPCS: 36415; 71046; 71275; 80053; 81025; 83690; 84484; 85025; 85380; 85610; 85730; 93005; 96360; 99284; C9803; J7030; Q9967; U0003; U0005

== ENCOUNTER 2022-04-03 11:53 | Outpatient (CLI) | payer OTHER, SELFPAY | END 2022-04-03 11:54 | disposition home or self-care (01) | LOC: ANHGOSHLAB 11:54 | PROVIDERS: PCP Family Medicine; Visit Provider Nurse Practitioner Family | DX: F41.9 Anxiety disorder, unspecified (principal); R63.5 Abnormal weight gain | CPT/HCPCS: 36415; 84443 ==

== ENCOUNTER 2023-02-01 17:27 | Emergency (ER) | payer OTHER, SELFPAY ==
[2023-02-01 17:51] VITALS: BP 133/95; PULSE 90; RESP 16; TEMP 36.6; O2SAT 100
--- NOTE | 2023-02-01 18:09 | ED.URI ---
HPI - URI/Sore Throat General Chief Complaint: Upper Respiratory Infection Stated Complaint: fatigue,rt ear pain,shortness,sore throat Time Seen by Provider: 02/01/23 17:55 Source: patient and RN notes reviewed Mode of arrival: ambulatory Limitations: no limitations History of Present Illness HPI Narrative: Patient presents today with a 2 day history of cough, shortness of breath, right ear pain, fatigue, sore throat. She has taken 2 home COVID-19 test that were both negative. She has also been taking DayQuil, NyQuil, ibuprofen, and [id number] ear drops with some relief. Denies history of asthma. Related Data Home Medications Medication Instructions Recorded Confirmed alprazolam 0.25 mg tablet 0.25 mg PO DAILY PRN Anxiety 05/13/21 02/01/23 desogestrel 0.15 mg-ethinyl 1 tablet PO HS 05/13/21 02/01/23 estradiol 0.03 mg tablet (Enskyce) dextroamphetamine-amphetamine 20 20 mg PO BID 10/09/22 02/01/23 mg tablet (Adderall) diltiazem HCl 120 mg 120 mg PO DAILY 10/09/22 02/01/23 capsule,extended release 24 hr diltiazem HCl 30 mg tablet 30 mg PO DAILY PRN elevated pulse 10/09/22 02/01/23 Allergies Allergy/AdvReac Type Severity Reaction Status Date / Time amoxicillin Allergy Unknown Hives Verified 10/09/22 08:42 azithromycin Allergy Unknown Hives Verified 10/09/22 08:42 Review of Systems Review of Systems: CONSTITUTIONAL: Denies body aches, fever, chills, or sweats.+ fatigue EYES: Denies visual changes, redness, or discharge. ENT: Denies rhinorrhea, congestion. + sore throat, right ear pain CARDIOVASCULAR: Denies chest pain, palpitations, or edema. RESPIRATORY: + cough, shortness of breath GASTROINTESTINAL: Denies abdominal pain, nausea, vomiting, or diarrhea. GENITOURINARY: Denies dysuria or hematuria. SKIN: Denies rash, itching, or wounds. MUSCULOSKELETAL: Denies back pain, joint pain, or myalgia. NEUROLOGIC: Denies headache, numbness, tingling, or weakness. PSYCH: Denies depression or anxiety. [facility] Past Medical History Medical History ADHD (attention deficit hyperactivity disorder) Chronic joint pain Chronic low back pain Dysautonomia Epilepsia Essential hypertension Migraine Recurrent streptococcal tonsillitis Surgical History Surgical History Hx of tonsillectomy (~07/2021) Family History Family History Mother Asthma Sibling Jimena-Danlos disease Other Depression Diabetes mellitus Family history of arthritis Family history of mental disorder Social History Social History Social History: Cora is single, she has no children. 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. Smoking status: Never smoker Alcohol intake: current Drinks per week: 1 Alcohol use details: Socially-wine Substance use: current Substance use type: marijuana Other substance usage details: EDIBLES Last use: 06/30/21 Lack of Transportation: No Lack of Food: Never True Current Housing: I Have Housing Concerned About Future Housing: No Difficulty Paying Gas/Electric Bills: No Difficulty Paying for Meds: No Currently Unemployed: No Education: Bachelor's Degree Difficulty w/ Childcare or Family Care: No Living arrangements: with family Gender identity (if verbalized by the patient): Female Spiritual care concerns: No Comments At time of signature, I have reviewed and agree with nursing past medical, surgical, social and family history unless otherwise noted. Please see nursing chart for further information. There is no relevant family history pertinent to the presenting complaint Exam Narrative: GENERAL: Mildly ill-appearing, well-nourished, and in no acute distress. HEAD: Normocephalic, atraumatic. EYES: EOMI. No redness or d
== END 2023-02-01 18:21 | disposition home or self-care (01) ==
PROVIDERS: Emergency Provider Nurse Practitioner; PCP Nurse Practitioner Family
DX: B34.9 Viral infection, unspecified (principal); I10 Essential (primary) hypertension; F90.9 Attention-deficit hyperactivity disorder, unspecified type
CPT/HCPCS: 87081; 87880; 99213; G0463

== ENCOUNTER 2023-09-29 13:45 | Emergency (ER) | payer OTHER, SELFPAY ==
--- NOTE | 2023-09-29 13:48 | ED.URI ---
HPI - URI/Sore Throat General Chief Complaint: Upper Respiratory Infection Stated Complaint: Cough, Migraines, Lethargic, Joint Pain, Rash Time Seen by Provider: 09/29/23 13:47 Source: patient Mode of arrival: ambulatory Limitations: no limitations History of Present Illness HPI Narrative: Cora is a 27-year-old female patient presenting to the clinic today with complaints of cough, headache, nausea, light sensitivity, sore throat, feeling lethargic, joint pain, and rash. Does have history of chronic joint pain and migraine headaches. States that her symptoms have been ongoing since September 23. Reports her headache is currently an 8/10. Reports her rash comes and goes. Not currently having rash at this time. States she is having some mild shortness breath as well with a nonproductive cough. Did COVID/flu test at home and was negative. Has taken Benadryl this morning but has not taken her migraine medicine. She is concerned that she may have mold exposure. MD elicited complaint: fever, cough, sore throat and nasal congestion Related Data Home Medications Medication Instructions Recorded Confirmed desogestrel 0.15 mg-ethinyl 1 tablet PO HS 05/13/21 09/29/23 estradiol 0.03 mg tablet (Enskyce) dextroamphetamine-amphetamine 20 20 mg PO BID 10/09/22 09/29/23 mg tablet (Adderall) diltiazem HCl 360 mg 360 mg PO DAILY 09/29/23 09/29/23 capsule,extended release 24 hr doxycycline monohydrate 50 mg 50 mg PO BID 09/29/23 09/29/23 tablet Allergies Allergy/AdvReac Type Severity Reaction Status Date / Time amoxicillin AdvReac Mild Hives Verified 09/29/23 13:53 azithromycin AdvReac Mild Hives Verified 09/29/23 13:53 Review of Systems Review of Systems: Pertinent positives per HPI. Patient denies any rash, visual changes, dizziness, chest pain, palpitations, nausea, vomiting, diarrhea, constipation, abdominal pain, or any urinary issues. [facility] Past Medical History Medical History ADHD (attention deficit hyperactivity disorder) Chronic joint pain Chronic low back pain Dysautonomia Epilepsia Essential hypertension Migraine Recurrent streptococcal tonsillitis Surgical History Surgical History Hx of tonsillectomy (~07/2021) Family History Family History Mother Asthma Sibling Jimena-Danlos disease Other Depression Diabetes mellitus Family history of arthritis Family history of mental disorder Social History Social History Social History: Cora is single, she has no children. 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 Smoking status: Never smoker Alcohol intake: current Drinks per week: 1 Alcohol use details: Socially-wine Substance use: current Substance use type: marijuana Other substance usage details: EDIBLES Last use: 06/30/21 Lack of Transportation: No Lack of Food: Never True Current Housing: I Have Housing Concerned About Future Housing: No Difficulty Paying Gas/Electric Bills: No Difficulty Paying for Meds: No Currently Unemployed: No Education: Bachelor's Degree Difficulty w/ Childcare or Family Care: No Living arrangements: with family Gender identity (if verbalized by the patient): Female Spiritual care concerns: No Comments At the time of my signature, I reviewed and agree with the nursing past medical, surgical, social, and family history. There is no relevant family history pertinent to the patient complaint. Exam Narrative: General: Well-developed, well nourished, in no apparent distress Head: Normocephalic, atraumatic Eyes: Pupils equally round and reactive to light bilaterally, EOM intact, sclera and conjunctive clear, no discharge, lids normal Ears: TMs intact and congested, ear canals clear, no dr
[2023-09-29 14:00] VITALS: BP 138/97; PULSE 115; RESP 18; TEMP 37.6; O2SAT 100
[2023-09-29] MEDS: KETOROLAC (*BKC) 60 MG/2 ML VIAL IM (14:25)
[2023-09-29] MEDS: ONDANSETRON HCL ODT 4 MG TABLET SUBLINGUAL (14:25)
== END 2023-09-29 14:46 | disposition home or self-care (01) ==
PROVIDERS: Emergency Provider Nurse Practitioner Family; PCP Nurse Practitioner Family
DX: G43.909 Migraine, unspecified, not intractable, without status migrainosus (principal); J02.9 Acute pharyngitis, unspecified; J06.9 Acute upper respiratory infection, unspecified; I10 Essential (primary) hypertension; F90.9 Attention-deficit hyperactivity disorder, unspecified type
CPT/HCPCS: 87081; 87880; 96372; 99213; A9270; G0463; J1885